=== PATIENT | female | born 1980 | race Caucasian/White ===

== ENCOUNTER 2017-01-04 18:36 | Emergency (ER) | payer MEDICAID ==
[~2017-01-04] VITALS: Ht 154.9 cm; Wt 83.5 kg
[2017-01-04] MEDS ORDERED: MORPHINE SULFATE 10 MG/ML VIAL. IV ONE (19:00)
[2017-01-04] MEDS ORDERED: ONDANSETRON PF 4 MG/2 ML VIAL. IV ONE (19:00)
[2017-01-04] MEDS ORDERED: IV NORMAL SALINE 1000ML BAG 1,000 ML IV ONE (19:00)
[2017-01-04] MEDS ORDERED: KETOROLAC TROMETHAMINE 30 MG/ML INJ. IV ONE (19:00)
--- NOTE | 2017-01-04 19:37 | RAD ---
History: Right flank pain for 2 weeks. Comparison: None. Technique: CT of the abdomen and pelvis was performed without intravenous or oral contrast. Exposure: One or more of the following individualized dose reduction techniques were utilized for this examination: 1. Automated exposure control 2. Adjustment of the mA and/or kV according to patient size 3. Use of iterative reconstruction technique Findings: Evaluation of solid organs of the abdomen and pelvis is limited by lack of intravenous contrast. Evaluation of enteric structures may be limited by lack of oral contrast. Liver, spleen, pancreas, and bilateral adrenal glands are unremarkable. Gallbladder is absent. Bilateral kidneys and ureters are without evidence of stone or obstruction. No bowel obstruction or inflammation is seen. Appendix is without evidence of inflammation. Colonic diverticulosis is noted, but no diverticulitis is seen. Urinary bladder is unremarkable. The uterus is unremarkable. Left ovary appears mildly enlarged, likely by cyst. Impression: 1. No acute abnormality identified in the abdomen or pelvis. 2. Left ovary appears mildly enlarged, probably by cyst. Electronically signed by: Nilson Calderon MD (01/04/2017 7:34 PM)
--- NOTE | 2017-01-04 19:46 | PHYS DOC ---
Past Medical History Past Medical History: Anxiety, Asthma, Depression, Diabetes-Type II, Kidney Stone, Other Additional Past Medical Histor: manic, borderline personality disorder, aggressive tendencies Past Surgical History: Cholecystectomy, Other Additional Past Surgical Histo: colonoscopy, laproscopy, uterine ablation Additional Information: 1 ppd Alcohol Use: Rarely Drug Use: None Adult General Chief Complaint Chief Complaint: FLANK PAIN HPI HPI Patient is a 36 year old female presenting to the emergency department for evaluation of right flank pain that has been going off and on for the past several days. She says she has some nausea with it but no abdominal pain fevers chills dysuria hematuria vaginal bleeding or vaginal discharge. Patient says the pain feels similar to when she had kidney stones in the past. Patient is in no obvious distress with normal vital signs. Review of Systems Review of Systems Constitutional: Denies fever or chills [] Cardiovascular: No additional information not addressed in HPI [] GI: Denies abdominal pain. + nausea. No vomiting, bloody stools or diarrhea [] : Denies dysuria or hematuria [] Musculoskeletal: + back pain. No joint pain [] Integument: Denies rash or skin lesions [] Neurologic: Denies headache, focal weakness or sensory changes [] Current Medications Current Medications Current Medications Medications (Trade) Dose Ordered Sig/Juvenal Start Time Stop Time Status Last Admin Dose Admin Ketorolac Tromethamine (Toradol) 30 mg 1X ONCE 01/04/17 19:00 01/04/17 19:01 DC 01/04/17 19:35 30 MG Morphine Sulfate 5 mg 1X ONCE 01/04/17 19:00 01/04/17 19:01 DC 01/04/17 19:36 5 MG Ondansetron HCl (Zofran) 8 mg 1X ONCE 01/04/17 19:00 01/04/17 19:01 DC 01/04/17 19:35 8 MG Sodium Chloride 1,000 ml @ 1,000 mls/hr 1X ONCE 01/04/17 19:00 01/04/17 19:59 DC 01/04/17 19:00 1,000 MLS/HR Allergies Allergies Allergies Coded Allergies Type Severity Reaction Last Updated Verified doxycycline Allergy Intermediate RASH 01/04/17 Yes Uncoded Allergies Type Severity Reaction Last Updated Verified THERMAFLU Adverse Reaction Intermediate "RED AND HOT" 01/04/17 Physical Exam Physical Exam Constitutional: Well developed, well nourished, no acute distress, non-toxic appearance. [] Cardiovascular:Heart rate regular rhythm, no murmur [] Lungs & Thorax: Bilateral breath sounds clear to auscultation [] Abdomen: Bowel sounds normal, soft, no tenderness, no masses, no pulsatile masses. [] Skin: Warm, dry, no erythema, no rash. [] Back: + R CVA tenderness. [] Extremities: No tenderness, no cyanosis, no clubbing, ROM intact, no edema. [] Neurologic: Alert and oriented X 3, normal motor function, normal sensory function, no focal deficits noted. [] Current Patient Data Vital Signs Vital Signs Date Time Temp Pulse Resp B/P (MAP) Pulse Ox O2 Delivery O2 Flow Rate FiO2 01/04/17 19:36 20 01/04/17 18:47 99.0 86 157/101 (119) 96 Room Air 99.0 Lab Values Laboratory Tests Test 01/04/17 18:03 01/04/17 19:26 01/04/17 19:45 POC Urine HCG, Qualitative Hcg negative (Negative) Sodium Level 137 mmol/L (136-145) Potassium Level 3.8 mmol/L (3.5-5.1) Chloride Level 101 mmol/L (98-107) Carbon Dioxide Level 29 mmol/L (21-32) Anion Gap 7 (6-14) Blood Urea Nitrogen 7 mg/dL (7-20) Creatinine 0.7 mg/dL (0.6-1.0) Estimated GFR (Cockcroft-Gault) 94.2 BUN/Creatinine Ratio 10 (6-20) Glucose Level 142 mg/dL (70-99) H Calcium Level 8.9 mg/dL (8.5-10.1) Total Bilirubin 0.3 mg/dL (0.2-1.0) Aspartate Amino Transferase (AST) 17 U/L (15-37) Alanine Aminotransferase (ALT) 27 U/L (14-59) Alkaline Phosphatase 80 U/L (46-116) Total Protein 7.5 g/dL (6.4-8.2) Albumin 3.4 g/dL (3.4-5.0) Albumin/Globulin Ratio 0.8 (1.0-1.7) L Urine Collection Type Unknown Urine Color Yellow Urine Clarity Clear Urine pH 7.5 Urine Specific Dwight 1.020 Urine Protein Negative mg/dL (NEG-TRACE) Urine Glucose (UA) Negative mg/dL (NEG) Urine Ketones (Stick) Negative mg/dL (NEG) Urine Blood Negative (NEG) Urine Nitrite Negative (NEG) Urine Bilirubin Negative (NEG) Urine Urobilinogen Dipstick 0.2 mg/dL (0.2 mg/dL) Urine Leukocyte Esterase Negative (NEG) Urine RBC 0 /HPF (0-2) Urine WBC 0 /HPF (0-4) Urine Squamous Epithelial Cells Few /LPF Urine Bacteria 0 /HPF (0-FEW) Urine Mucus Mod /LPF Laboratory Tests 01/04/17 19:26 EKG EKG [] Radiology/Procedures Radiology/Procedures History: Right flank pain for 2 weeks. Comparison: None. Technique: CT of the abdomen and pelvis was performed without intravenous or oral contrast. Exposure: One or more of the following individualized dose reduction techniques were utilized for this examination: 1. Automated exposure control 2. Adjustment of the mA and/or kV according to patient size 3. Use of iterative reconstruction technique Findings: Evaluation of solid organs of the abdomen and pelvis is limited by lack of intravenous contrast. Evaluation of enteric structures may be limited by lack of oral contrast. Liver, spleen, pancreas, and bilateral adrenal glands are unremarkable. Gallbladder is absent. Bilateral kidneys and ureters are without evidence of stone or obstruction. No bowel obstruction or inflammation is seen. Appendix is without evidence of inflammation. Colonic diverticulosis is noted, but no diverticulitis is seen. Urinary bladder is unremarkable. The uterus is unremarkable. Left ovary appears mildly enlarged, likely by cyst. Impression: 1. No acute abnormality identified in the abdomen or pelvis. 2. Left ovary appears mildly enlarged, probably by cyst. Electronically signed by: Nilson Calderon MD (01/04/2017 7:34 PM) DICTATED and SIGNED BY: NILSON CALDERON MD DATE: 01/04/171924 Course & Med Decision Making Course & Med Decision Making Patient's workup is completely negative. Her pain is controlled and she is in no obvious distress so she'll be discharged with instructions for NSAIDs rice PCP follow-up. Dragon Disclaimer Dragon Disclaimer This electronic medical record was generated, in whole or in part, using a voice recognition dictation system. Departure Departure Impression: Primary Impression: Back pain Disposition: 01 HOME, SELF-CARE Condition: GOOD Referrals: NO PCP (PCP) Patient Instructions: Back Pain, Adult Additional Instructions: TAKE 400 MG OF IBUPROFEN EVERY 6 HOURS AND THE NORCO FOR BREAKTHROUGH PAIN. FOLLOW WITH YOUR PRIMARY CARE PROVIDER IN THE NEXT WEEK TO ENSURE IMPROVEMENT. THANK YOU! Scripts Hydrocodone/Apap 5-325 (NORCO 5-325 TABLET) 1 Each Tablet 1 TAB PO PRN Q6HRS Y for PAIN, #10 TAB 0 Refills Prov: ROBERTO IRVIN DO 01/04/17 Problem Qualifiers Primary Impression: Back pain Back pain location: thoracic back pain Chronicity: acute Back pain laterality: right Qualified Codes: M54.6 - Pain in thoracic spine ROBERTO IRVIN DO Jan 04, 2017 19:45
[2017-01-04 19:54] LABS: CALCIUM 8.9 mg/dL (8.5-10.1); CREATININE 0.7 mg/dL (0.6-1.0); GFR 94.2; POTASSIUM 3.8 mmol/L (3.5-5.1)
[2017-01-04 19:57] LABS: ALBUMIN 3.4 g/dL (3.4-5.0); ALBUMIN/GLOBULIN RATIO 0.8 (1.0-1.7); TOTAL BILIRUBIN 0.3 mg/dL (0.2-1.0); TOTAL PROTEIN 7.5 g/dL (6.4-8.2)
[2017-01-04 20:22] LABS: BILIRUBIN,URINE NEGATIVE (NEG); GLUCOSE,URINE NEGATIVE (NEG); NITRITE,URINE NEGATIVE (NEG); PH,URINE 7.5; PROTEIN,URINE NEGATIVE (NEG-TRACE); UROBILINOGEN,URINE 0.2 mg/dL (0.2 mg/dL)
[2017-01-04 20:32] LABS: BACTERIA,URINE 0 /HPF (0-FEW); RBC,URINE 0 /HPF (0-2); SQUAMOUS EPITHELIAL CELL,UR FEW /LPF; WBC,URINE 0 /HPF (0-4)
[2017-01-04 21:00] VITALS: BP 136/70
[2017-01-04] MEDS ORDERED: HYDR-971 PO (21:14)
== END 2017-01-04 21:23 | disposition home or self-care (01) ==
LOC: ER 18:36
DX: M54.6 Pain in thoracic spine (principal); R11.0 Nausea; R10.9 Unspecified abdominal pain; F17.200 Nicotine dependence, unspecified, uncomplicated; F41.9 Anxiety disorder, unspecified; E11.9 Type 2 diabetes mellitus without complications; J45.909 Unspecified asthma, uncomplicated; F32.9 Major depressive disorder, single episode, unspecified; Z87.442 Personal history of urinary calculi; Z88.8 Allergy status to other drugs, medicaments and biological substances; Z90.49 Acquired absence of other specified parts of digestive tract; Z88.1 Allergy status to other antibiotic agents
CPT/HCPCS: 36415; 74176; 80053; 81001; 81025; 96361; 96374; 96375; 99285; J1885; J2270; J2405; J7030